=== PATIENT | female | born 1985 | race American Indian/Alaskan Native ===

== ENCOUNTER 2017-02-12 00:29 | Outpatient (CLI) | payer MEDICAID ==
[2017-02-12] MEDS ORDERED: LACTATED RINGERS 1,000 ML IV ONE (00:52)
[2017-02-12] MEDS ORDERED: ZOFRAN IV ONE (00:53)
[2017-02-12 01:16] VITALS: BP 136/76
[2017-02-12 02:15] LABS: Bilirubin,Urine NEG (Negative); Blood,Urine NEG (Negative); Granular Casts,Urine 1 /LPF; Ketones,Urine 20 mg/dL (Negative); Leukocyte Esterase,Urine SM (Negative); Mucus,Urine 3+ /HPF; Nitrite,Urine NEG (Negative)
== END 2017-02-12 02:44 | disposition home or self-care (01) ==
LOC: TRG 00:29
PROVIDERS: ATTEND Obstetrics & Gynecology
DX: O26.892 Other specified pregnancy related conditions, second trimester (principal); R10.9 Unspecified abdominal pain; K30 Functional dyspepsia; Z3A.21 21 weeks gestation of pregnancy
CPT/HCPCS: 59025; 81001; 96360; 96361; 96374; J2405; J7120